=== PATIENT | male | born 1980 | race Two or more races ===

== ENCOUNTER 2022-03-03 22:05 | Emergency (ER) | payer SELFPAY ==
[~2022-03-03] VITALS: Ht 167.6 cm; Wt 90.7 kg
[2022-03-03 23:17] LABS: Basophils # (auto) 0 10 ^3/uL (0-0.2); Basophils % (auto) 0.1 % (0.0-2.0); Eosinophils # (auto) 0.1 10 ^3/uL (0-0.8); Eosinophils % (auto) 0.6 % (0.0-7.0); Hematocrit 40.2 % (41.0-53.0); Lymphocytes # (auto) 1.9 10 ^3/uL (0.4-5.4); Lymphocytes % (auto) 15.2 % (10.0-50.0); Mean Corpuscular Hemoglobin 31.8 pg (28.0-32.0); Mean Corpuscular Hgb Conc. 34.8 g/dL (32.0-36.0); Mean Corpuscular Volume 91.4 fL (80.0-100.0); Monocytes # (auto) 1.1 10 ^3/uL (0-1.3); Neutrophils # (auto) 9.6 10 ^3/uL (1.6-8.6); Neutrophils % (auto) 75.1 % (37.0-80.0); Nucleated Red Blood Cells % 0.1 %; Red Cell Distribution Width 12.9 % (11.8-14.3); White Blood Cell 12.7 10^3/uL (4.4-10.8)
[2022-03-03 23:35] LABS: Albumin 3.7 g/dL (3.4-5.0); Calcium 8.9 mg/dL (8.5-10.1); Potassium 4.4 mmol/L (3.5-5.1)
[2022-03-03 23:37] LABS: BUN/Creatinine Ratio 10.8
[2022-03-03 23:40] LABS: Bilirubin, Total 0.7 mg/dL (0.2-1.0)
[2022-03-04 03:20] VITALS: BP 105/72
== END 2022-03-04 03:21 | disposition home or self-care (01) ==
LOC: ER 22:05 → EDBD 22:05 → ER 03-04 03:18
DX: G93.41 Metabolic encephalopathy (principal)
CPT/HCPCS: 36415; 70450; 80053; 85025; 93005